=== PATIENT | female | born 1960 | race Caucasian/White ===

== ENCOUNTER 2024-04-21 19:03 | Emergency (ER) | payer OTHER ==
[2024-04-21 19:54] VITALS: BP 131/57
[2024-04-21] MEDS ORDERED: SODIUM CHLORIDE 0.9% 1,000 ML IV STA (20:00)
[2024-04-21] MEDS ORDERED: ONDANSETRON HCl 4 MG/2 ML SDV IV STA (20:00)
[2024-04-21 20:29] LABS: BASO% 1.1 % (0-3); EOS% 6.7 % (0-8); HEMATOCRIT 39.8 % (37.0-47.0); IMMATURE GRANULOCYTES 0.2 % (0.0-5.0); LYMPH% 38.3 % (15-41); MEAN CELL VOLUME 89.8 fL CALC (80.0-100.0); MEAN CORPUSCULAR HGB 29.3 pG CALC (26.0-32.0); MEAN CORPUSCULAR HGB CONC 32.7 g/dL CAL (32.0-36.0); MONO% 6.6 % (2-13); NEUT# 3.78 thou/uL (2.00-7.15); NEUT% 47.1 % (42-76); RED BLOOD COUNT 4.43 mill/uL (4.20-5.60); RED CELL DISTRI WIDTH 14.2 % (11.5-15.5)
[2024-04-21 20:46] LABS: ALBUMIN 4.5 g/dL (3.2-5.0); BILIRUBIN, TOTAL 0.5 mg/dL (0.02-1.3); CREATININE 0.6 mg/dL (0.5-1.0); POTASSIUM 3.9 mmol/l (3.5-5.1); TOTAL PROTEIN 7.8 g/dL (6.3-8.2)
[2024-04-21 20:49] LABS: ACT PARTIAL THROMBO TIME 25.4 SECONDS (20.0-32.5)
[2024-04-21 20:53] LABS: PROTHROMBIN TIME 9.3 SECONDS (9.0-12.5)
[2024-04-21 21:17] LABS: TSH, 3RD GENERATION 1.44 uIU/mL (0.47 - 4.68)
[2024-04-21] MEDS ORDERED: MAXZIDE-25MG1 COMBO PO (21:24)
[2024-04-21] MEDS ORDERED: PROVERA10 MG PO (22:23)
[2024-04-21] MEDS ORDERED: PROMETHAZINE HY25 M1 PO (22:23)
[2024-04-21] MEDS ORDERED: MEDROXYPROGESTERONE ACETATE IM ONE (22:25)
[2024-04-21 22:29] LABS: URINE BILIRUBIN - DIPSTICK Negative (NEGATIVE); URINE BLOOD DIPSTICK Small (NEGATIVE); URINE GLUCOSE - DIPSTICK Negative (NEGATIVE); URINE KETONE Negative (NEGATIVE); URINE LEUK ESTERASE Negative (NEGATIVE); URINE NITRITE - DIPSTICK Negative (Negative); URINE PH 5.5 (4.5-8.0); URINE PROTEIN - DIPSTICK Negative (NEG-TRACE); URINE SPECIFIC GRAVITY <=1.005; URINE UROBILINOGEN - DIPSTICK 0.2 E.U./dL (0.2)
[2024-04-21 22:32] LABS: URINE COLOR Yellow
[2024-04-21 22:39] LABS: URINE RBC 0-2 RBC/hpf (0-5)
[2024-04-21 23:00] VITALS: BP 131/57
== END 2024-04-21 23:00 | disposition home or self-care (01) | DRG 761 ==
LOC: ED 19:03
PROVIDERS: Family Medicine
DX: N93.9 Abnormal uterine and vaginal bleeding, unspecified (principal); R11.0 Nausea; I10 Essential (primary) hypertension; F41.9 Anxiety disorder, unspecified
CPT/HCPCS: Q9967